=== PATIENT | female | born 1985 | race Caucasian/White ===

== ENCOUNTER 2017-05-07 13:26 | Emergency (ER) | payer BC ==
[2017-05-07 13:36] VITALS: BP 107/71
--- NOTE | 2017-05-07 14:07 | UC ---
Complaint Female HPI - HPI Summary HPI Summary: Pt presents with urinary symptoms of frequency, urgency and dysuria and LLQ pain. LLQ began suddenly this mrchantelle. Pt reports that she has not hada BM this morning. Urinary c/o X 1-2 days. - History Of Current Complaint Chief Complaint: UCGU Stated Complaint: URINARY,LEFT LOWER ABD PAIN Time Seen by Provider: 05/07/17 13:57 Hx Obtained From: Patient Hx Last Menstrual Period: 04/06/17 ?: No Onset/Duration: Sudden Onset Timing: Constant Severity Initially: Mild Severity Currently: Mild Character: Sharp, Dull, Burning Aggravating Factor(s): Movement, Urination Alleviating Factor(s): Nothing Associated Signs And Symptoms: Positive: Negative - Risk Factors Ectopic Risk Factor: Negative - Allergies/Home Medications Allergies/Adverse Reactions: Allergies Allergy/AdvReac Type Severity Reaction Status Date / Time No Known Allergies Allergy Verified 05/07/17 13:36 Home Medications: Home Medications Control 1 tab PO DAILY 05/07/17 [History] PMH/Surg Hx/FS Hx/Imm Hx Previously Healthy: Yes - Surgical History Surgical History: Yes Surgery Procedure, Year, and Place: T&A - Family History Known Family History: Positive: Cardiac Disease - Social History Occupation: Employed Full-time Lives: With Family Alcohol Use: None Substance Use Type: None Smoking Status (MU): Never Smoked Tobacco Have You Smoked in the Last Year: No Review of Systems Constitutional: Negative Skin: Negative Eyes: Negative ENT: Negative Respiratory: Negative Cardiovascular: Negative Gastrointestinal: Abdominal Pain Genitourinary: Dysuria, Frequency, Urgency Motor: Negative Neurovascular: Negative Musculoskeletal: Negative Neurological: Negative Psychological: Negative All Other Systems Reviewed And Are Negative: Yes Physical Exam Triage Information Reviewed: Yes Appearance: Well-Appearing, Pain Distress - mild Vital Signs: Initial Vital Signs Temp 98.4 F 05/07/17 13:31 Pulse 74 05/07/17 13:31 Resp 14 05/07/17 13:31 BP 107/71 05/07/17 13:31 Pulse Ox 100 05/07/17 13:31 Vital Signs Reviewed: Yes Eye Exam: Normal ENT Exam: Normal Neck exam: Normal Respiratory Exam: Normal Cardiovascular Exam: Normal Abdominal Exam: Other Abdomen Description: Positive: CVA Tenderness (L), Other: - generalized LLQ discomfort with exam. Bowel Sounds: Positive: Present Musculoskeletal Exam: Normal Neurological Exam: Normal Psychological Exam: Normal Skin Exam: Normal Complaint Female Dx - Differential Dx/Diagnosis Differential Diagnosis/HQI/PQRI: Ovarian Cyst, Urinary Tract Infection Provider Diagnoses: UTI. ovarian cyst-? constipation-? Discharge - Discharge Plan Condition: Stable Disposition: HOME Prescriptions: Cephalexin CAP* [Keflex 500 CAP*] 500 mg PO Q12H #10 cap Patient Education Materials: Urinary Tract Infection in Women (ED), Acute Abdominal Pain (ED) Referrals: [facility] [Outside] No Primary Care Phys,NOPCP [Primary Care Provider] - If Needed
== END 2017-05-07 14:15 | disposition home or self-care (01) ==
LOC: UCCORT 13:26
DX: N39.0 Urinary tract infection, site not specified (principal); R10.32 Left lower quadrant pain
CPT/HCPCS: 81003; 84702; 87077; 87086; 99202; G0463

== ENCOUNTER 2018-05-23 19:20 | Emergency (ER) | payer BC ==
[2018-05-23 19:37] VITALS: BP 131/80
--- NOTE | 2018-05-23 19:53 | UC ---
Respiratory Complaint HPI - HPI Summary HPI Summary: Pt c/o generalized malasie, nasal congestion, PND, cough, "low grade fever", chest congestion, cough X 3 weeks. - History of Current Complaint Chief Complaint: UCRespiratory Stated Complaint: COUGH/CHEST CONGESTION Time Seen by Provider: 05/23/18 19:29 Hx Obtained From: Patient Hx Last Menstrual Period: 05/16/18 ?: No Onset/Duration: Gradual Onset, Lasting Weeks, Still Present Timing: Constant Severity Initially: Mild Severity Currently: Moderate Pain Intensity: 0 Character: Cough: Nonproductive Aggravating Factors: Deep Breaths, Recumbent Position Alleviating Factors: Nothing Associated Signs And Symptoms: Positive: Fever, Chills, URI, Nasal Congestion - Risk Factors Pulmonary Embolism Risk Factors: Negative Cardiac Risk Factors: Negative Pseudomonas Risk Factors: Negative Tuberculosis Risk Factors: Negative - Allergies/Home Medications Allergies/Adverse Reactions: Allergies Allergy/AdvReac Type Severity Reaction Status Date / Time No Known Allergies Allergy Verified 05/23/18 19:32 PMH/Surg Hx/FS Hx/Imm Hx Previously Healthy: Yes - Surgical History Surgical History: Yes Surgery Procedure, Year, and Place: T&A - Family History Known Family History: Positive: Cardiac Disease - Social History Occupation: Employed Full-time Lives: With Family Alcohol Use: None Substance Use Type: None Smoking Status (MU): Never Smoked Tobacco Have You Smoked in the Last Year: No Review of Systems Constitutional: Fever, Chills, Fatigue Skin: Negative Eyes: Negative ENT: Sinus Congestion Respiratory: Cough Cardiovascular: Negative Gastrointestinal: Negative Genitourinary: Negative Motor: Negative Neurovascular: Negative Musculoskeletal: Negative Neurological: Negative Psychological: Negative Is Patient Immunocompromised?: No All Other Systems Reviewed And Are Negative: Yes Physical Exam Triage Information Reviewed: Yes Appearance: Ill-Appearing Vital Signs: Initial Vital Signs Temp 98.3 F 05/23/18 19:33 Pulse 66 05/23/18 19:33 Resp 16 05/23/18 19:33 BP 131/80 05/23/18 19:33 Pulse Ox 99 05/23/18 19:33 Vital Signs Reviewed: Yes Eye Exam: Normal ENT: Positive: Nasal congestion, TM bulging Dental Exam: Normal Neck exam: Normal Respiratory Exam: Normal Cardiovascular Exam: Normal Musculoskeletal Exam: Normal Neurological Exam: Normal Psychological Exam: Normal Skin Exam: Normal UC Diagnostic Evaluation - Laboratory O2 Sat by Pulse Oximetry: 99 Respiratory Course/Dx - Differential Dx/Diagnosis Differential Diagnosis/HQI/PQRI: Bronchitis, Sinusitis Provider Diagnoses: Bronchitis Discharge - Sign-Out/Discharge Documenting (check all that apply): Patient Departure - Discharge Plan Condition: Stable Disposition: HOME Prescriptions: Azithromycin TAB* [Zithromax TAB (Z-PEPE) 250 mg #6 tabs] 2 tab PO .TODAY, THEN 1 DAILY #1 pepe Benzonatate CAP* [Tessalon 100 MG CAP*] 100 mg PO Q8H PRN #30 cap PRN Reason: Cough Cetirizine HCl/Pseudoephedrine [Zyrtec-D Tablet] 1 each PO DAILY #10 tab Patient Education Materials: Acute Bronchitis (ED) Referrals: CLARENCE Tan [Primary Care Provider] - If Needed Additional Instructions: Per institutional requirements, I have reviewed the chart, however, I was not consulted specifically or made aware of this patient by the above midlevel provider. I did not personally evaluate, interact with , or disposition this patient. - Billing Disposition and Condition Condition: STABLE Disposition: Home
== END 2018-05-23 20:04 | disposition home or self-care (01) ==
LOC: UCCORT 19:20
DX: J40 Bronchitis, not specified as acute or chronic (principal)
CPT/HCPCS: 99212; G0463

== ENCOUNTER 2019-07-04 11:33 | Emergency (ER) | payer BC ==
[2019-07-04 12:05] VITALS: BP 113/77
--- NOTE | 2019-07-04 12:20 | UC ---
Throat Pain/Nasal Daryl HPI - HPI Summary HPI Summary: sinus congestion x 1 day body aches, feverish all started this morning, no cough, no runny nose no abdominal pain , no n/v/d/c, no urinary sx - History of Current Complaint Chief Complaint: UCGeneralIllness Stated Complaint: BODY ACHES/CHILLS,RODRIGUEZ,SINUS PRESSURE Time Seen by Provider: 07/04/19 12:13 Hx Obtained From: Patient Hx Last Menstrual Period: 06/25/19 ?: No Onset/Duration: Gradual Onset, Lasting Days - 1, Still Present Severity: Moderate Pain Intensity: 4 Cough: None Associated Signs & Symptoms: Positive: Sinus Discomfort, Fever. Negative: Dysphagia, FB Sensation, Drooling, Wheezing, Hoarseness, Nasal Discharge, Vomiting, Rash, Other - Allergies/Home Medications Allergies/Adverse Reactions: Allergies Allergy/AdvReac Type Severity Reaction Status Date / Time No Known Allergies Allergy Verified 07/04/19 11:56 Home Medications: Home Medications Multivitamin [Multivitamins] 1 cap PO 07/04/19 [History] Naproxen Sodium [Naproxen 220 mg] 220 mg PO PRN 07/04/19 [History] Oral Contraceptive 1 tab PO DAILY 07/04/19 [History] Zinc 50 mg PO DAILY PRN 07/04/19 [History Confirmed 07/04/19] PMH/Surg Hx/FS Hx/Imm Hx Previously Healthy: Yes - Surgical History Surgical History: Yes Surgery Procedure, Year, and Place: T&A. EAR TUBES AGE 7 - Family History Known Family History: Positive: Cardiac Disease - Social History Alcohol Use: None Substance Use Type: None Smoking Status (MU): Never Smoked Tobacco Have You Smoked in the Last Year: No Review of Systems All Other Systems Reviewed And Are Negative: Yes Constitutional: Positive: Fever, Chills, Fatigue Skin: Positive: Negative Eyes: Positive: Negative ENT: Positive: Sinus Pain/Tenderness. Negative: Sore Throat Respiratory: Positive: Negative. Negative: Cough Cardiovascular: Positive: Negative Gastrointestinal: Positive: Negative Is Patient Immunocompromised?: No Physical Exam Triage Information Reviewed: Yes Appearance: Well-Appearing, No Pain Distress, Well-Nourished Vital Signs: Initial Vital Signs Temp 100.1 F 07/04/19 11:59 Pulse 97 07/04/19 11:59 Resp 20 07/04/19 11:59 BP 113/77 07/04/19 11:59 Pulse Ox 100 07/04/19 11:59 Vital Signs Reviewed: Yes Eye Exam: Normal Eyes: Positive: Conjunctiva Clear ENT: Positive: Normal ENT inspection, Hearing grossly normal, Pharynx normal Neck: Positive: Supple, Nontender, No Lymphadenopathy Respiratory: Positive: Chest non-tender, Lungs clear, Normal breath sounds, No respiratory distress Cardiovascular: Positive: RRR, No Murmur, Pulses Normal Skin Exam: Normal Throat Pain/Nasal Course/Dx - Differential Dx/Diagnosis Provider Diagnosis: Viral illness Discharge ED - Sign-Out/Discharge Documenting (check all that apply): Patient Departure All imaging exams completed and their final reports reviewed: No Studies - Discharge Plan Condition: Stable Disposition: HOME Patient Education Materials: Viral Syndrome (ED) Referrals: Kentrell Dickerson MD [Primary Care Provider] - If Needed - Billing Disposition and Condition Condition: STABLE Disposition: Home
== END 2019-07-04 12:22 | disposition home or self-care (01) ==
LOC: UCCORT 11:33
DX: B34.9 Viral infection, unspecified (principal)
CPT/HCPCS: 99211; G0463